=== PATIENT | female | born 1990 | race Caucasian/White ===

== ENCOUNTER 2016-09-04 12:04 | Emergency (ER) | payer OTHER ==
[2016-09-04 12:10] VITALS: BP 141/82; PULSE 80; TEMP 98; BMI 33.2
--- NOTE | 2016-09-04 12:57 | PDOC ---
History of Present Illness - General Chief Complaint: Vaginal Sxs Stated Complaint: TAMPON DISPLACEMENT Time Seen by Provider: 09/04/16 12:21 History Source: Patient Exam Limitations: No Limitations - History of Present Illness Initial Comments: 09/04/16 12:57 My Chief Complaint: unable to get tampax out History of Present Illness: Pt. is a 26 y/o female with h/o asthma here today due to her not being able to get out the tampax that she had put in place at 4 am today. Patient reports a slightly uncomfortable however denies any severe pain. Denies any fever, nausea, or vomiting,or back pain. Pt. denies any urinary symptoms. Pt. denies any vaginal odor. 09/04/16 13:12 Timing/Duration: other (since 4 am tampax) Severity: mild Associated Symptoms: reports: denies symptoms Past History - Past Medical History Allergies/Adverse Reactions: Allergies Allergy/AdvReac Type Severity Reaction Status Date / Time orange juice [[place] Juice] Allergy Mild Rash Verified 09/04/16 12:10 tomato [Tomato] Allergy Rash Verified 09/04/16 12:10 Home Medications: Ambulatory Orders NK [No Known Home Medication] 09/04/16 Asthma: Yes Cancer: No Cardiac Disorders: No Diabetes: No HTN: No Suicide Attempt (Hx): No Seizures: No Thyroid Disease: No - Reproductive History (#): 3 Para: 2 - Immunization History Immunization Up to Date: Yes - Psycho/Social/Smoking Cessation Hx Anxiety: No Suicidal Ideation: No Smoking Status: Yes Smoking History: Current every day smoker Have you smoked in the past 12 months: No Number of Cigarettes Smoked Daily: 4 Cigars Per Day: 0 Information on smoking cessation initiated: No Hx Alcohol Use: Yes (SOCIAL) Drug/Substance Use Hx: No Substance Use Type: None Hx Substance Use Treatment: No Review of Systems - Review of Systems Able to Perform ROS?: Yes Constitutional: No: Symptoms Reported HEENTM: No: Symptoms Reported Respiratory: No: Symptoms reported Cardiac (ROS): No: Symptoms Reported ABD/GI: No: Symptoms Reported : Yes: Other (tampax displaced and retained since 4 am ) Integumentary: No: Symptoms Reported *Physical Exam - Vital Signs Last Vital Signs Temp Pulse Resp BP Pulse Ox 98.0 F 80 20 141/82 99 09/04/16 12:06 09/04/16 12:06 09/04/16 12:06 09/04/16 12:06 09/04/16 12:06 - Physical Exam General Appearance: Yes: Appropriately Dressed Respiratory/Chest: positive: Lungs Clear, Normal Breath Sounds. negative: Chest Tender, Respiratory Distress Cardiovascular: positive: Regular Rhythm, Regular Rate, S1, S2 Female Pelvic Exam: positive: cervical os closed, normal adnexa, discharge ( minimal vaginal bleeding noted ), vaginal bleeding (minimal pink tinged), other (tampax noted across cervical os, after removal of tampax cervical os closed ). negative: CMT, lesions, Bartholin mass, Scalene Gland, adnexal tenderness Gastrointestinal/Abdominal: positive: Normal Bowel Sounds, Soft. negative: Tender, Organomegaly, Distended, Guarding, Rebound, Tenderness, Hepatomegaly, Spleenomegaly Procedures - Consent Consent obtained: From Patient - Additional Procedures Progress: 09/04/16 13:17 inserted speculum was able was able to visualize tampax using a long forcep removed tampax, no CMT, no lesions, tiny amount of pink tinged vaginal bleeding , cervical os closed Medical Decision Making - Medical Decision Making 09/04/16 13:02 Pt. is a 26 y/o female with no significant illnesses here today due to her not being able to get out the tampax that she had put in place at 4 am today. Patient reports a slightly uncomfortable however denies any severe pain. Denies any fever, nausea, or vomiting,or back pain. Pt. denies any urinary symptoms. Pt. denies any vaginal odor. tampax displacement PLAN: tampax removal 09/04/16 13:20 *DC/Admit/Observation/Transfer Diagnosis at time of Disposition: Retained tampon Qualifiers: Encounter type: initial encounter Qualified Code(s): T19.2XXA - Foreign body in vulva and vagina, initial encounter - Discharge Dispostion Disposition: HOME Condition at time of disposition: Stable - Referrals Referrals: Moises Bullock MD [Primary Care Provider] - - Patient Instructions Additional Instructions: Follow up with culinary director as soon as possible Return to emergency room if any Fever, pelvic pain or vaginal discharge do not use tampax for remaining of this menstrual cycle and when you do you tampax make sure the string is felt She voiced understanding of discharge instructions and all questions were answered
== END 2016-09-04 13:10 | disposition home or self-care (01) ==
LOC: JERFT 12:04
DX: T19.2XXA Foreign body in vulva and vagina, initial encounter (principal); X58.XXXA Exposure to other specified factors, initial encounter; Y93.89 Activity, other specified; Y92.038 Other place in apartment as the place of occurrence of the external cause
CPT/HCPCS: 99281-25

== ENCOUNTER 2016-09-14 17:09 | Emergency (ER) | payer OTHER ==
[2016-09-14 17:14] VITALS: BP 116/64; PULSE 86; TEMP 98; BMI 32.8
[2016-09-14 21:19] LABS: BASOPHIL 1.1 % (0-2.0); EOSINOPHIL 1.2 % (0-4.5); MCH 28.4 pg (25.7-33.7); MCHC 32.7 g/dl (32.0-36.0); MEAN PLT VOLUME 8.5 fl (7.5-11.1); NEUTROPHILS 59.5 % (42.8-82.8); PLATELET COUNT 216 K/MM3 (134-434); RDW 14.7 % (11.6-15.6); WHITE BLOOD COUNT 11.1 K/mm3 (4.0-10.0)
[2016-09-14 21:55] LABS: URINE APPEARANCE CLEAR; URINE BILIRUBIN NEGATIVE (NEGATIVE); URINE COLOR LTYELLOW; URINE GLUCOSE (UA) NEGATIVE (NEGATIVE); URINE KETONE NEGATIVE (NEGATIVE); URINE LEUK ESTERASE NEGATIVE (NEGATIVE); URINE NITRITE NEGATIVE (NEGATIVE); URINE PROTEIN NEGATIVE (NEGATIVE); URINE UROBILINOGEN NEGATIVE E.U./dl (0.2-1.0)
--- NOTE | 2016-09-14 22:00 | PDOC ---
History of Present Illness - General Chief Complaint: Vaginal Bleeding Stated Complaint: VAGINAL BLEEDING Time Seen by Provider: 09/14/16 19:49 - History of Present Illness Initial Comments: 09/14/16 21:56 CHIEF COMPLAINT: vaginal bleeding HISTORY OF PRESENT ILLNESS: 26 yo F with history of medical (03/17 ) presents to ED with vaginal bleeding since 4 pm today. She reports that her LMP was 5/3 "so this seemed abnormal to me." She reports the bleeding as enough to warrant a pad, but not more than one pad an hour. She denies urinary discomfort or frequency, nausea, vomiting, diarrhea, but does report "a little headache right now." No recent travel or sick contacts. PAST MEDICAL HISTORY: Denies past medical history FAMILY HISTORY: Denies SOCIAL HISTORY: Current smoker, 4 cigarettes daily. Denies alcohol, illicit drug use. SURGICAL HISTORY: Denies ALLERGIES: orange juice, tomato REVIEW OF SYSTEMS General/Constitutional: Denies fever or chills. Denies weakness. Cardiovascular: Denies chest pain or shortness of breath. Respiratory: Denies cough, wheezing, or hemoptysis. Gastrointestinal: Denies nausea, vomiting, diarrhea or constipation. Denies rectal bleeding. Genitourinary: Vaginal bleeding x 1 day. Denies dysuria, frequency, or change in urination. Musculoskeletal: Denies joint or muscle swelling or pain. Denies neck or back pain. Skin and breasts: Denies rash or easy bruising. PHYSICAL EXAM General Appearance: Well-appearing, appropriately dressed. No apparent distress. HEENT: EOMI, PERRLA,. No conjunctival pallor. No photophobia, scleral icterus. Respiratory/Chest: Lungs CTAB. Cardiovascular: RRR. S1, S2. Gastrointestinal/Abdominal: Normal bowel sounds. Abdomen soft, non-distended. No tenderness or rebound tenderness. No organomegaly, pulsatile mass, guarding, hernia, hepatomegaly, splenomegaly. Pelvic: External genitalia normal without lesions. Vaginal vault with copious bloody discharge, no clots. Cervix is long and closed. No cervical motion tenderness. Uterus is nontender and normal in size. Right adnexal tenderness. Musculoskeletal/Extremities: Normal inspection. FROM of all extremities, normal capillary refill. Pelvis Stable. No CVA tenderness. No tenderness to extremities, pedal edema, swelling, erythema or deformity. Integumentary: Appropriate color, dry, warm. 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 Fully oriented, alert. Appropriate mood/affect. Motor strength 5/5. No appreciable EOM palsy, facial droop or sensory deficit. Past History - Past Medical History Allergies/Adverse Reactions: Allergies Allergy/AdvReac Type Severity Reaction Status Date / Time orange juice [[place] Juice] Allergy Mild Rash Verified 09/14/16 17:14 tomato [Tomato] Allergy Rash Verified 09/14/16 17:14 Home Medications: Ambulatory Orders NK [No Known Home Medication] 09/04/16 Asthma: Yes Cancer: No Cardiac Disorders: No Diabetes: No HTN: No Suicide Attempt (Hx): No Seizures: No Thyroid Disease: No - Reproductive History (#): 3 Para: 2 - Immunization History Immunization Up to Date: Yes - Psycho/Social/Smoking Cessation Hx Anxiety: No Suicidal Ideation: No Smoking Status: Yes Smoking History: Current every day smoker Have you smoked in the past 12 months: No Number of Cigarettes Smoked Daily: 4 Cigars Per Day: 0 Information on smoking cessation initiated: No Hx Alcohol Use: Yes (SOCIAL) Drug/Substance Use Hx: No Substance Use Type: None Hx Substance Use Treatment: No *Physical Exam - Vital Signs Last Vital Signs Temp Pulse Resp BP Pulse Ox 98 F 86 18 116/64 97 09/14/16 17:11 09/14/16 17:11 09/14/16 17:11 09/14/16 17:11 09/14/16 17:11 ED Treatment Course - LABORATORY CBC & Chemistry Diagram: 09/14/16 21:00 - ADDITIONAL ORDERS Additional order review: 09/14/16 21:00 RBC 4.63 MCV 87.0 MCHC 32.7 RDW 14.7 MPV 8.5 Neutrophils % 59.5 Lymphocytes % 30.2 Monocytes % 8.0 Eosinophils % 1.2 Basophils % 1.1 - RADIOLOGY Radiology Studies Ordered: Category Date Time Status TRANSVAGINAL ULTRASOUND US [US] Stat Ultrasound 09/14/16 20:33 Ordered Medical Decision Making - Medical Decision Making 09/14/16 22:00 26 yo F with history of medical (03/17) presents to ED with vaginal bleeding since 4 pm today. -CBC, T&S -UA, UCx, Urine -TV U/S r/o cyst rupture *DC/Admit/Observation/Transfer Diagnosis at time of Disposition: Vaginal bleeding between periods - Discharge Dispostion Disposition: HOME Condition at time of disposition: Stable Admit: No - Referrals Referrals: Moises Bullock MD [Primary Care Provider] - Luis Martinez MD [Staff Physician] - Michelet Lucio MD [Staff Physician] - - Patient Instructions Printed Discharge Instructions: DI for Vaginal Bleeding Additional Instructions: As discussed, please follow up with Dr. Lucio as planned this week for further evaluation of your vaginal bleeding. If you experience any severe bleeding ( more than one soaked pad an hour), dizziness, lightheadedness, vomiting, or any new or worsening symptoms, please return to the ER.
[2016-09-14 22:05] LABS: URINE BLOOD 3+ (NEGATIVE)
[2016-09-14 22:08] LABS: URINE MUCUS RARE; URINE RBC 12 /hpf (0-3); URINE WBC 1 /hpf (3-5)
== END 2016-09-14 23:40 | disposition home or self-care (01) ==
LOC: JER 17:09
DX: N93.8 Other specified abnormal uterine and vaginal bleeding (principal); Z72.0 Tobacco use; J45.909 Unspecified asthma, uncomplicated
CPT/HCPCS: 36415; 76830-TC; 81003; 81015; 84703; 85025; 86850; 86900; 86901; 87086; 99284-25

== ENCOUNTER 2017-06-19 03:37 | Emergency (ER) | payer OTHER ==
[2017-06-19 04:02] VITALS: BP 123/75; PULSE 68; TEMP 98.9; BMI 30.3
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
== END 2017-06-19 08:57 | disposition home or self-care (01) ==
LOC: JER 03:37
DX: O26.891 Other specified pregnancy related conditions, first trimester (principal); S00.03XA Contusion of scalp, initial encounter; V43.62XA Car passenger injured in collision with other type car in traffic accident, initial encounter; Y92.488 Other paved roadways as the place of occurrence of the external cause; Y93.89 Activity, other specified; Y99.8 Other external cause status; Z3A.08 8 weeks gestation of pregnancy
CPT/HCPCS: 36415; 76801-TC; 84702; 99283-25

== ENCOUNTER 2018-01-30 05:10 | Inpatient (IN) | payer OTHER ==
[2018-01-30] MEDS ORDERED: NALOXONE HCL 0.4 MG/ML VIAL IVPUSH PRN (05:36)
[2018-01-30] MEDS ORDERED: AMPICILLIN SODIUM 2 GM VIAL ONE (05:38)
[2018-01-30] MEDS ORDERED: FENTANYL/BUPIVACAINE/NS/PF - PCEA - 50 ML DISP.SYRIN EP SCH (05:45)
[2018-01-30] MEDS ORDERED: FENTANYL/BUPIVACAINE/NS/PF - PCEA - 50 ML DISP.SYRIN EP ONE (05:45)
--- NOTE | 2018-01-30 05:50 | HP ---
Past Medical History - Primary Care Physician PCP:: Ann Pérez - Admission Chief Complaint: 27yo P4 @ 40.6wk with painful contuctions, no VB, no LOF, +FM History of Present Illness: 1. Rh neg s/p Rhogam 11/07/2017 2. GBS pos for Ampicillin prophylaxis 3. BMI - 38, GCT wnl 4. Ex - smoker - reports quieting once found out she is 5. [facility] - Uterotonics cart available 6. h/o PP HTN 2005, first , current highest BP 140/90 will monitor, she is asymptomatic 7. 2009 child with thrombocytopenia, doing well History Source: Patient Limitations to Obtaining History: No Limitations - Past Medical History Pulmonary: Yes: Asthma (mild, no intubation, no steroids) ...: 6 ...Para: 4 ( x 4, FT uncomplicated) ...Term: 4 ...Induced : 1 (RU - 486) ... Weeks Gestation by Dates: 40.6 ...EDC by Dates: 01/24/18 Additional OB History: 2005 PP HTN. 2008 thrombocytopenia - Past Surgical History Past Surgical History: Yes: None Hx Myomectomy: No Hx Transabdominal Cerclage: No - Smoking History Smoking history: Never smoked Have you smoked in the past 12 months: No Aproximately how many cigarettes per day: 4 - Alcohol/Substance Use Hx Alcohol Use: No - Social History History of Recent Travel: No Home Medications - Allergies Allergies/Adverse Reactions: Allergies Allergy/AdvReac Type Severity Reaction Status Date / Time orange juice [[place] Juice] Allergy Mild Rash Verified 11/10/17 18:29 peanut oil Allergy Verified 01/30/18 07:06 tomato [Tomato] Allergy Rash Verified 11/10/17 18:29 - Home Medications Home Medications: Ambulatory Orders Vitamins (Sjr) - 1 tab PO DAILY 01/30/18 Review of Systems - Review of Systems Constitutional: reports: No Symptoms Eyes: reports: No Symptoms HENT: reports: No Symptoms Neck: reports: No Symptoms Cardiovascular: reports: No Symptoms Respiratory: reports: No Symptoms Gastrointestinal: reports: No Symptoms Genitourinary: reports: No Symptoms Breasts: reports: No Symptoms Reported Musculoskeletal: reports: No Symptoms Integumentary: reports: No Symptoms Neurological: reports: No Symptoms Endocrine: reports: No Symptoms Hematology/Lymphatic: reports: No Symptoms Psychiatric: reports: No Symptoms Pain Intensity: 8 Physical Exam - Maternity Constitutional: Yes: Well Nourished, No Distress, Calm Eyes: Yes: WNL HENT: Yes: WNL Neck: Yes: WNL Cardiovascular: Yes: WNL, Regular Rate and Rhythm Lungs: Clear to auscultation Breast(s): Yes: WNL - Abdominal Exam/OB Fundal Height: 39 (EFW - 7lb, gynecoid pelvis) Number of Fetuses: Single Presentation: Vertex Contractions: Yes Regularity: Regular (Q 2-3 per min) Intensity: Mod/Strong Monitor Mode: External Heart Rate (range): 140 Heart Rate Location: Midline Category: I Accelerations: Uniform Decelerations: None - Vaginal Exam/OB Vaginal Bleediing: No Speculum Exam: No Dilatation (cm): 7-8cm Effacement (%): 90 Amniotic Membrane Status: Intact Presentation: Vertex/Position Station: -3 - Physical Exam Musculoskeletal: Yes: WNL Extremities: Yes: WNL Edema: No Integumentary: Yes: WNL ...Motor Strength: WNL Psychiatric: Yes: WNL, Alert, Oriented Assessment/Plan 27yo P 4 @ 40.6wks in active labor Category 1 FHR Admit to L&D IVF NPO Labs Requests Epidural for pain management, anesthesia contacted [facility] Uterotonics cart available Anticipate
[2018-01-30] MEDS ORDERED: AMPICILLIN - 2 GM in SODIUM CHLORIDE 100 ML IVPB ONE (05:53)
[2018-01-30] MEDS ORDERED: ELECTROLYTE-148 SOLN 1,000 ML IV SCH (06:00)
[2018-01-30 06:05] LABS: BASO % 0.1 % (0-2.0); EOS % 0.2 % (0-4.5); HEMATOCRIT 33.8 % (32.4-45.2); HEMOGLOBIN 11.1 GM/dL (10.7-15.3); LYMPH % 12.1 % (8-40); MCH 28.2 pg (25.7-33.7); MEAN CELL VOLUME 85.4 fl (80-96); MEAN PLT VOLUME 9.7 fl (7.5-11.1); MONO % 8.3 % (3.8-10.2); NEUT % 79.3 % (42.8-82.8); PLATELET COUNT 159 K/MM3 (134-434); RBC 3.95 M/mm3 (3.60-5.2); RDW 14.6 % (11.6-15.6); WHITE BLOOD COUNT 14.4 K/mm3 (4.0-10.0)
[2018-01-30 06:12] VITALS: BMI 38.3
[2018-01-30] MEDS ORDERED: OXYTOCIN 20 UNITS in 0.9% NS 20 UNIT/1,000 ML INFUS.BAG IV ONE ×2 (06:24→10:21)
[2018-01-30 06:46] LABS: INR 0.92 (0.83-1.09); PROTHROMBIN TIME (PATIENT) 10.9 SEC (9.7-13.0)
[2018-01-30] MEDS ORDERED: OXYTOCIN 30 UNITS in 0.9% NS 30 UNIT/500 ML INFUS.BAG IVPB ONE (07:12)
[2018-01-30] MEDS ORDERED: OXYTOCIN 30 UNITS in 0.9% NS 30 UNIT/500 ML INFUS.BAG IVPB SCH (07:30)
[2018-01-30] MEDS ORDERED: LIDOCAINE HCL 1% PRESERVATIVE FREE - 30ML VIAL ONE (07:32)
[2018-01-30] MEDS: OXYTOCIN 20 UNITS in 0.9% NS 20 UNIT/1,000 ML INFUS.BAG IV SCH ×3 (08:45→11:15)
[2018-01-30] MEDS ORDERED: BENZOCAINE 20% 57 GM BOTTLE TP PRN (08:48)
[2018-01-30] MEDS ORDERED: WITCH HAZEL 50% (TUCKS) 40 PAD/JAR PAD TP PRN (08:48)
[2018-01-30] MEDS ORDERED: BISACODYL 10 MG SUPP.RECT RC PRN (08:48)
[2018-01-30] MEDS ORDERED: METHYLERGONOVINE MALEATE 0.2 MG/1 ML AMP IM PRN (08:48)
[2018-01-30] MEDS ORDERED: BENZOCAINE 28 GM HEMORRHOIDAL OINTMENT TP PRN (08:48)
--- NOTE | 2018-01-30 08:53 | PN ---
Delivery - Delivery Vaginal Delivery: No Problems Type of Anesthesia: Epidural Episiotomy/Laceration: None EBL (cc): 200 Delivery, Single - Stages of Labor Date 1st Stage Initiatied: 01/30/18 Time 1st Stage Initiated: 01:00 Date 2nd Stage Initiated: 01/30/18 Time 2nd Stage Initiated: 08:30 Date of Delivery: 01/30/18 Time of Delivery: 08:40 Date Placenta Delivered: 01/30/18 Time Placenta Delivered: 08:45 Placenta: Yes: Spontaneous - Condition of Television News Video Editor/Editor Continuity And Script Present: No Gender: Female Weight: 7 lb 9 oz Position: Left, OA - 1 Minute Total Score: 9 5 Minutes Total Score: 10 - Feeding Plan Initial Plan: Exclusive throughout hospitalization Benefits of Exclusively reinforced: Yes Remarks - Remarks Remarks: Uncomplicated delivery of head and shoulders Blood gasses sent
[2018-01-30] MEDS ORDERED: D5W-LR W/ 20 UNITS OXYTOCIN 20 UNIT/1,000 ML INFUS.BAG IV SCH (09:00)
[2018-01-30 09:17] LABS: ARTERIAL BLD GAS O2 SATURATION 20.2 % (90-98.9); ARTERIAL BLOOD GAS PCO2 59.5 mmHg (35-45); ARTERIAL BLOOD GAS PO2 15.5 mmHg (80-100); ARTERIAL BLOOD GAS pH 7.26 (7.35-7.45)
[2018-01-30 09:18] LABS: ARTERIAL BLOOD GAS BASE EXCESS -2.3 meq/l (-2-2)
[2018-01-30 09:21] LABS: VENOUS PH 7.29 (7.32-7.42)
[2018-01-30 09:22] LABS: VENOUS PC02 51.1 mmHg (38-52); VENOUS PO2 23.8 mmHg (28-48)
[2018-01-30 09:36] LABS: COCAINE, UR NEGATIVE ng/ml (CUTOFF=300); METHADONE, UR NEGATIVE ng/ml (CUTOFF=300); OPIATES, URI NEGATIVE ng/ml (CUTOFF=300); PHENCYCLIDINE,URINE NEGATIVE ng/ml (CUTOFF=25); URINE AMPHETAMINES NEGATIVE ng/ml (CUTOFF=500); URINE BARBITURATES NEGATIVE ng/ml (CUTOFF=200); URINE BENZODIAZEPINES NEGATIVE ng/ml (CUTOFF=200)
[2018-01-30] MEDS: PRENATAL VITAMINS W/ FOLIC ACID TABLET (FP) PO SCH (12:14)
[2018-01-30] MEDS: FERROUS SO4 325 MG TABLET (FP) PO SCH ×2 (12:14→22:04)
[2018-01-30] MEDS: ACETAMINOPHEN 325 MG TABLET (FP) PO PRN (12:54)
[2018-01-30] MEDS: IBUPROFEN 600 MG TABLET (FP) PO PRN (12:56)
[2018-01-31 07:45] LABS: BASO % 0.3 % (0-2.0); EOS % 0.3 % (0-4.5); HEMATOCRIT 33.6 % (32.4-45.2); HEMOGLOBIN 10.9 GM/dL (10.7-15.3); LYMPH % 19.9 % (8-40); MCH 27.7 pg (25.7-33.7); MCHC 32.4 g/dl (32.0-36.0); MEAN CELL VOLUME 85.4 fl (80-96); MEAN PLT VOLUME 9.7 fl (7.5-11.1); MONO % 8.8 % (3.8-10.2); NEUT % 70.7 % (42.8-82.8); PLATELET COUNT 167 K/MM3 (134-434); RBC 3.93 M/mm3 (3.60-5.2); RDW 14.8 % (11.6-15.6); WHITE BLOOD COUNT 14.7 K/mm3 (4.0-10.0)
[2018-01-31] MEDS: FERROUS SO4 325 MG TABLET (FP) PO SCH ×2 (09:14→21:25)
[2018-01-31] MEDS: PRENATAL VITAMINS W/ FOLIC ACID TABLET (FP) PO SCH (09:14)
--- NOTE | 2018-01-31 09:47 | PN ---
Post Progress Note - Subjective Subjective: Patient without acute complaints. Reports tolerating oral intake without nausea or vomiting. Ambulating without dizziness. Denies fevers or chills. Pain well controlled with oral pain medication. without difficulty. Passing flatus. Post Day: 1 Type of Delivery: Vital Signs: Vital Signs Temperature 98.0 F 01/31/18 06:00 Pulse Rate 79 01/31/18 06:00 Respiratory Rate 20 01/31/18 06:00 Blood Pressure 125/58 L 01/31/18 06:00 O2 Sat by Pulse Oximetry (%) 99 01/30/18 10:00 Breast Exam: Yes: Soft Uterus: Yes: Fundus Firm Abdomen/GI: Yes: Abdomen soft Lochia: Yes: Rubra Lochia, amount: Small Perineum: Yes: Intact Activity: Ambulating - Labs Labs: CBC WBC 14.7 K/mm3 (4.0-10.0) H 01/31/18 07:00 RBC 3.93 M/mm3 (3.60-5.2) 01/31/18 07:00 Hgb 10.9 GM/dL (10.7-15.3) 01/31/18 07:00 Hct 33.6 % (32.4-45.2) 01/31/18 07:00 MCV 85.4 fl (80-96) 01/31/18 07:00 MCH 27.7 pg (25.7-33.7) 01/31/18 07:00 MCHC 32.4 g/dl (32.0-36.0) 01/31/18 07:00 RDW 14.8 % (11.6-15.6) 01/31/18 07:00 Plt Count 167 K/MM3 (134-434) 01/31/18 07:00 MPV 9.7 fl (7.5-11.1) 01/31/18 07:00 Absolute Neuts (auto) 10.4 K/mm3 (1.5-8.0) H 01/31/18 07:00 Neutrophils % 70.7 % (42.8-82.8) 01/31/18 07:00 Lymphocytes % 19.9 % (8-40) D 01/31/18 07:00 Monocytes % 8.8 % (3.8-10.2) 01/31/18 07:00 Eosinophils % 0.3 % (0-4.5) 01/31/18 07:00 Basophils % 0.3 % (0-2.0) 01/31/18 07:00 Nucleated RBC % 0 % (0-0) 01/31/18 07:00 Assessment/Plan 27yo P 5 now 1. Doing well 2. VSS, Afebrile, no evidance of acute blood loss 3. Rh negative status, s/p RhoGam 4. Encourage ambulation 5. Continue oral pain medication 6. Discharge home tomorrow 7. Instructed on Pelvic rest for 6weeks 8. Return to office in 4-6 weeks
--- NOTE | 2018-01-31 09:47 | DS ---
Physical Exam-MAINTENANCE TRAINER Vital Signs: Vital Signs Temperature 98.0 F 01/31/18 06:00 Pulse Rate 79 01/31/18 06:00 Respiratory Rate 20 01/31/18 06:00 Blood Pressure 125/58 L 01/31/18 06:00 O2 Sat by Pulse Oximetry (%) 99 01/30/18 10:00 Constitutional: Yes: Well Nourished, No Distress, Calm Eyes: Yes: WNL HENT: Yes: WNL Neck: Yes: WNL Cardiovascular: Yes: WNL, Regular Rate and Rhythm Respiratory: Yes: WNL, Regular, CTA Bilaterally Gastrointestinal: Yes: WNL, Normal Bowel Sounds, Soft External Genitalia: Yes: Normal Internal Exam Deferred: Yes ....Post : Yes: Uterus firm, Uterus non-tender Breast(s): Yes: WNL Musculoskeletal: Yes: WNL Extremities: Yes: WNL Edema: No Integumentary: Yes: WNL Neurological: Yes: WNL, Alert, Oriented ...Motor Strength: WNL Psychiatric: Yes: WNL, Alert, Oriented Labs: CBC, BMP 01/31/18 07:00 Delivery - Delivery Vaginal Delivery: No Problems Type of Anesthesia: Epidural Episiotomy/Laceration: None EBL (cc): 200 Delivery, Single - Stages of Labor Date 1st Stage Initiatied: 01/30/18 Time 1st Stage Initiated: 01:00 Date 2nd Stage Initiated: 01/30/18 Time 2nd Stage Initiated: 08:30 Date of Delivery: 01/30/18 Time of Delivery: 08:40 Date Placenta Delivered: 01/30/18 Time Placenta Delivered: 08:45 Placenta: Yes: Spontaneous - Condition of Infant Cloth Bleaching Supervisor/Marine Photographer Present: No Infant Gender: Female Weight: 7 lb 9 oz Position: Left, OA Total Hours ROM (Hrs/Mins): 1/45 - 1 Minute Total Score: 9 5 Minutes Total Score: 10 - [place] Feeding Plan Initial Plan: Exclusive throughout hospitalization Benefits of Exclusively reinforced: Yes Remarks - Remarks Remarks: Uncomplicated delivery of head and shoulders Blood gasses sent Discharge Summary Reason For Visit: LABOR ADMIT Procedures: Principal: Normal Vaginal delivery Other Procedures: RhoGam administration Hospital Course: Unremarkable Condition: Good - Instructions Diet, Activity, Other Instructions: Physical activity Resume your normal everyday activity as tolerated no heavy lifting or exercise until seen by your surgeon. You may walk unlimited sangeetha of and climb stairs. You may resume driving the car when you feel safe and comfortable behind the wheel. No sexual activity as instructed. Wound care If you have a bandage, leave it on, and keep dry for 48-72 hours. After that time discard the outer bandage. If they are tapes on the skin under the out of bandage leave them in place. They will peel off in the next 7 to 10 days. Do Not Peel them off. You may shower the day after surgery. If there are tapes present on the skin, you may shower over them. Diet There are no dietary restrictions. Eat healthy, high-fiber foods. Drink 6 to 8 glasses of liquid each day. This will assist in keeping your bowels are regular. Pain management You may take Tylenol or acetaminophen or Ibuprofen (for example, Motrin, Advil etc.) from my pain prescription medication is ordered should be taken as prescribed for moderate to severe pain. Call MD for any of the following: Severe pain not relieved by medication Fever of 101 or higher Excessive bleeding or drainage on dressing Inability to urinate Referrals: Michelet Lucio MD [Staff Physician] - Disposition: HOME - Home Medications Comprehensive Discharge Medication List: Ambulatory Orders Vitamins (Sjr) - 1 tab PO DAILY 01/30/18
[2018-01-31] MEDS: ACETAMINOPHEN 325 MG TABLET (FP) PO PRN (21:25)
[2018-01-31] MEDS: IBUPROFEN 600 MG TABLET (FP) PO PRN (21:26)
[2018-01-31] MEDS ORDERED: SENNOSIDES/DOCUSATE COMBO (SENNA PLUS) TABLET (UD) PO PRN (22:00)
[2018-01-31] MEDS: OXYTOCIN 20 UNITS in 0.9% NS 20 UNIT/1,000 ML INFUS.BAG IV SCH (23:55)
[2018-02-01 08:42] VITALS: BP 122/68; PULSE 65; TEMP 98.6
[2018-02-01] MEDS: PRENATAL VITAMINS W/ FOLIC ACID TABLET (FP) PO SCH (09:11)
[2018-02-01] MEDS: FERROUS SO4 325 MG TABLET (FP) PO SCH (09:11)
== END 2018-02-01 12:15 | disposition home or self-care (01) | DRG 560 ==
LOC: JLDR 05:10 → J3W 11:21
PROVIDERS: ADMIT Obstetrics & Gynecology; ATTEND Obstetrics & Gynecology
PROC: 10E0XZZ Delivery of Products of Conception, External Approach (ICD-10-PCS; principal; 2018-01-30)
DX: O99.824 Streptococcus B carrier state complicating childbirth (principal); Z3A.01 Less than 8 weeks gestation of pregnancy; Z37.0 Single live birth
CPT/HCPCS: 36415; 36600; 59409; 71046-TC-FY; 80307; 82803; 85025; 85461; 85610; 85730; 86593; 86762; 86850; 86900; 86901; 86999; 87389

== ENCOUNTER 2019-11-01 09:23 | Inpatient (IN) | payer OTHER ==
[2019-11-01] MEDS ORDERED: OXYTOCIN 20 UNITS in 0.9% NS 20 UNIT/1,000 ML INFUS.BAG IV ONE (10:12)
[2019-11-01] MEDS ORDERED: LIDOCAINE HCL 1% PRESERVATIVE FREE - 30ML VIAL ONE (10:12)
--- NOTE | 2019-11-01 10:15 | PD.OB.PROG ---
Past Medical History - Primary Care Physician PCP:: Luis Martinez Documenting Provider Type: Laborist - Admission Chief Complaint: Pain. Labor? History of Present Illness: 6th baby normal Limitations to Obtaining History: No Limitations - Nursing Documentation Nursing Documentation Reviewed: Yes - Past Medical History DECORATOR CONSULTANT: Denies/None Cardio/Vascular: Denies/None Pulmonary: Denies/None Gastrointestinal: Denies/None Hepatobiliary: Denies/None Renal/: Denies/None Heme/Onc: Denies/None Infectious Disease: Denies/None Psych: Denies/None Musculoskeletal: Denies/None Rheumatology: Denies/None ENT: Denies/None Endocrine: Denies/None Dermatology: Denies/None - Past Surgical History Past Surgical History: Yes: None - Smoking History Smoking history: Never smoked Have you smoked in the past 12 months: No Aproximately how many cigarettes per day: 4 - Alcohol/Substance Use Hx Alcohol Use: No - Social History History of Recent Travel: No Physical Exam - Obstetrical Constitutional: Yes: Well Nourished, No Distress, Calm Eyes: Yes: WNL, Conjunctiva Clear, EOM Intact HENT: Yes: WNL, Atraumatic, Normocephalic Neck: Yes: WNL, Supple, Trachea Midline Cardiovascular: Yes: WNL, Regular Rate and Rhythm Lungs: Clear to auscultation Breast(s): Yes: WNL - Abdominal Exam/OB Fundal Height: 40 Number of Fetuses: Single Presentation: Other (uncertain) Contractions: Yes Regularity: Regular Intensity: Mild Monitor Mode: External Heart Rate (range): 135 Heart Rate Location: [facility] Category: I Accelerations: Uniform Decelerations: None - Vaginal Exam/OB Vaginal Exam Deferred: No Vaginal Bleeding: No Speculum Exam: No Dilatation (cm): 9 Effacement (%): 100 Amniotic Membrane Status: Bulging Nitrazine Test: Negative Presentation: Vertex/Position (uncertain, cannot feel PP) - Physical Exam Musculoskeletal: Yes: WNL Extremities: Yes: WNL Integumentary: Yes: WNL ...Motor Strength: WNL Psychiatric: Yes: WNL Problem List - Problems (1) with 39 completed weeks gestation Code(s): Z3A.39 - 39 WEEKS GESTATION OF (2) Normal labor Code(s): O80 - ENCOUNTER FOR FULL-TERM UNCOMPLICATED DELIVERY; Z37.9 - OUTCOME OF DELIVERY, UNSPECIFIED (3) Uncertain lie of fetus Code(s): O32.0XX0 - MATERNAL CARE FOR UNSTABLE LIE, NOT APPLICABLE OR UNSP Assessment/Plan Multiparous female in active labor. Bulging membranes. Uncertain lie. Bedside sono done: vertex at the inlet. Good FH. Expecting NVD soon. Allow to labor. No ROM now. Fully discussed. Dr. Elizabeth notified.
[2019-11-01 10:41] LABS: BASO % 0.3 % (0-2.0); EOS % 0.3 % (0-4.5); HEMATOCRIT 35.8 % (32.4-45.2); HEMOGLOBIN 11.5 GM/dL (10.7-15.3); LYMPH % 12.3 % (8-40); MEAN CELL VOLUME 84.3 fl (80-96); MEAN PLT VOLUME 9.8 fl (7.5-11.1); NEUT % 82.1 % (42.8-82.8); PLATELET COUNT 160 K/MM3 (134-434); RBC 4.25 M/mm3 (3.60-5.2); RDW 14.6 % (11.6-15.6); WHITE BLOOD COUNT 14.7 K/mm3 (4.0-10.0)
[2019-11-01 10:45] VITALS: BMI 42.0
[2019-11-01 10:50] LABS: INR 0.9 (0.83-1.09); PROTHROMBIN TIME (PATIENT) 10.6 SEC (9.7-13.0)
[2019-11-01 10:52] LABS: ACTIVATED PTT 27.6 SECONDS (25.2-36.5)
[2019-11-01 11:13] LABS: BLOOD UREA NITROGEN 6.5 mg/dL (7-18); CALCIUM 8.8 mg/dL (8.5-10.1); CREATININE 0.6 mg/dL (0.55-1.3); POTASSIUM 3.7 mmol/L (3.5-5.1)
[2019-11-01] MEDS ORDERED: ELECTROLYTE-148 SOLN 1,000 ML IV SCH (12:00)
[2019-11-01] MEDS ORDERED: OXYTOCIN 30 UNITS in 0.9% NS 30 UNIT/500 ML INFUS.BAG IVPB ONE (14:00)
--- NOTE | 2019-11-01 14:38 | PN ---
Progress Note (short form) - Note Progress Note: cx full 100 vx -2 srom, clear , fhr cat 1, regular contraction
[2019-11-01] MEDS ORDERED: BUTORPHANOL TARTRATE 1 MG/ML VIAL ONE (15:35)
[2019-11-01] MEDS ORDERED: PROMETHAZINE HCL 25 MG/1 ML VIAL ONE (15:35)
--- NOTE | 2019-11-01 15:46 | PN ---
Progress Note (short form) - Note Progress Note: cx full 100 vx -2 , regular contraction, c/o severe pain, does not want to push. pain meds discussed advised statdol 1 mg
[2019-11-01] MEDS ORDERED: PROMETHAZINE HCL 25 MG/1 ML VIAL IVPUSH ONE (15:48)
[2019-11-01] MEDS ORDERED: DEXTROSE 5%-LACTATED RINGERS 1,000 ML IV SCH (16:00)
[2019-11-01] MEDS ORDERED: BUTORPHANOL TARTRATE 1 MG/ML VIAL IVPUSH ONE (16:00)
--- NOTE | 2019-11-01 16:30 | HP ---
Past Medical History - Primary Care Physician PCP:: Luis Martinez - Admission Chief Complaint: 39.2 weeks, labor , grand multiparous History of Present Illness: * 29 yo f o 4 5, 39 .2 weeks admitted in labor . cx 9 cm 100 vx -4 fhr cat 1, irregular contraction bulging membrane History Source: Patient Limitations to Obtaining History: No Limitations - Past Medical History Pulmonary: Yes: Asthma (mild, no intubation, no steroids) ...: 10 ...Para: 5 ...Term: 5 ...: 0 ...Spon : 1 ...Induced : 3 ...Living Children: 5 ...Multiple Gestation: 0 ...LMP: 01/30/19 ... Weeks Gestation by Dates: 39.2 ...EDC by Dates: 11/06/19 ...EDC by Sono: 11/02/19 - Past Surgical History Past Surgical History: Yes: None Hx Myomectomy: No Hx Transabdominal Cerclage: No - Smoking History Smoking history: Never smoked Have you smoked in the past 12 months: No Aproximately how many cigarettes per day: 4 - Alcohol/Substance Use Hx Alcohol Use: No - Social History History of Recent Travel: No Home Medications - Allergies Allergies/Adverse Reactions: Allergies Allergy/AdvReac Type Severity Reaction Status Date / Time orange juice [[place] Juice] Allergy Mild Rash Verified 11/01/19 10:49 peanut oil Allergy Verified 11/01/19 10:49 tomato [Tomato] Allergy Rash Verified 11/01/19 10:49 - Home Medications Home Medications: Ambulatory Orders Vitamins (Sjr) - 1 tab PO DAILY 01/30/18 Review of Systems - Review of Systems Constitutional: reports: No Symptoms Eyes: reports: No Symptoms HENT: reports: No Symptoms Neck: reports: No Symptoms Cardiovascular: reports: No Symptoms Respiratory: reports: No Symptoms Gastrointestinal: reports: No Symptoms Genitourinary: reports: No Symptoms Breasts: reports: No Symptoms Reported Musculoskeletal: reports: No Symptoms Integumentary: reports: No Symptoms Neurological: reports: No Symptoms Endocrine: reports: No Symptoms Hematology/Lymphatic: reports: No Symptoms Psychiatric: reports: No Symptoms Physical Exam - Maternity Vital Signs: Vital Signs Temperature 98.1 F 11/01/19 14:00 Pulse Rate 96 H 11/01/19 14:00 Respiratory Rate 18 11/01/19 14:00 Blood Pressure 137/87 11/01/19 14:00 O2 Sat by Pulse Oximetry (%) Constitutional: Yes: Well Nourished Eyes: Yes: WNL, Conjunctiva Clear, EOM Intact HENT: Yes: WNL, Atraumatic, Normocephalic Neck: Yes: WNL, Supple, Trachea Midline Cardiovascular: Yes: WNL, Regular Rate and Rhythm Breast(s): Yes: WNL - Abdominal Exam/OB Fundal Height: 40 Number of Fetuses: Single Presentation: Vertex Contractions: Yes Regularity: Irregular Intensity: Mod/Strong Monitor Mode: External Heart Rate Location: [facility] Category: I Accelerations: Non-Uniform Decelerations: None - Vaginal Exam/OB Vaginal Bleeding: No Speculum Exam: Yes Dilatation (cm): 9 cm Effacement (%): 100 Amniotic Membrane Status: Bulging Presentation: Vertex/Position Station: -4 - Physical Exam Musculoskeletal: Yes: WNL Extremities: Yes: WNL Edema: Yes Edema: LLE: Trace, RLE: Trace Deep Tendon Reflex Grade: Normal +2 - Labs Lab Results: CBC, BMP 11/01/19 10:12 11/01/19 10:12 Hemorrhage Risk Assessment - Risk Factors Medium Risk Factors: Yes: None High Risk Factors: Yes: None Risk Score: 1 Risk Level: Medium Risk Problem List - Problems (1) with 39 completed weeks gestation Code(s): Z3A.39 - 39 WEEKS GESTATION OF (2) Second stage of labor not established Code(s): [id number] - (3) Obesity complicating childbirth Code(s): O99.214 - OBESITY COMPLICATING CHILDBIRTH Assessment/Plan admit, observation fhm
[2019-11-01] MEDS ORDERED: BENZOCAINE 28 GM HEMORRHOIDAL OINTMENT TP PRN (16:33)
[2019-11-01] MEDS ORDERED: BISACODYL 10 MG SUPP.RECT RC PRN (16:33)
[2019-11-01] MEDS ORDERED: BENZOCAINE 20% 57 GM BOTTLE TP PRN (16:33)
[2019-11-01] MEDS ORDERED: WITCH HAZEL 50% (TUCKS) 40 PAD/JAR PAD TP PRN (16:33)
[2019-11-01] MEDS ORDERED: METHYLERGONOVINE MALEATE 0.2 MG/1 ML AMP IM PRN (16:33)
[2019-11-01] MEDS ORDERED: METHYLERGONOVINE MALEATE 0.2 MG/1 ML AMP IM ONE (16:34)
--- NOTE | 2019-11-01 16:36 | PN ---
Delivery - Delivery Vaginal Delivery: Spontaneous Episiotomy/Laceration: None (cx full head delivered , nasopharynx suctiond ant. and post, shoulder with no difficulty , live baby boy , 9/9 , placenta complete , no laceration, ebl 300 cc ,no complication) Delivery, Single - [place] Feeding Plan Initial Plan: Exclusive throughout hospitalization
[2019-11-01] MEDS: OXYTOCIN 20 UNITS in 0.9% NS 20 UNIT/1,000 ML INFUS.BAG IV SCH ×2 (16:55→21:06)
[2019-11-01 17:35] LABS: CORD BASE EXCESS -5.6 mmol/L (0-2); CORD PCO2 69.6 mmHg (30-78); CORD pH 7.173 (7.14-7.44)
[2019-11-01 17:37] LABS: CORD BASE EXCESS -7.1 mmol/L (0-2); CORD PCO2 45.9 mmHg (30-78); CORD pH 7.258 (7.14-7.44)
[2019-11-01] MEDS: FERROUS SO4 325 MG TABLET (FP) PO SCH (21:09)
[2019-11-01] MEDS: ACETAMINOPHEN 325 MG TABLET (FP) PO PRN (22:23)
[2019-11-01] MEDS: IBUPROFEN 600 MG TABLET (FP) PO PRN (22:24)
--- NOTE | 2019-11-02 06:44 | PN ---
Progress Note (short form) - Note Progress Note: ppd 1 , no c/o, voids ok, no excess vaginal bleeding CBC, BMP 11/01/19 10:12 11/01/19 10:12 Last Vital Signs Temp Pulse Resp BP Pulse Ox 98.1 F 72 18 142/75 98 11/02/19 06:26 11/02/19 06:26 11/02/19 06:26 11/02/19 06:26 11/01/19 20:27 abdomen soft, no distension, no cva uterus firm, non tender lochis mild no calf tenderness ppd 1 s/p ,doing well plan ambulate , cbc Problem List - Problems (1) with 39 completed weeks gestation Code(s): Z3A.39 - 39 WEEKS GESTATION OF (2) Second stage of labor not established Code(s): SWA5919 - (3) Obesity complicating childbirth Code(s): O99.214 - OBESITY COMPLICATING CHILDBIRTH
[2019-11-02 08:37] LABS: BASO % 0.6 % (0-2.0); EOS % 0.2 % (0-4.5); HEMATOCRIT 29.6 % (32.4-45.2); HEMOGLOBIN 9.5 GM/dL (10.7-15.3); MCH 26.8 pg (25.7-33.7); MEAN CELL VOLUME 83.8 fl (80-96); MEAN PLT VOLUME 9.8 fl (7.5-11.1); MONO % 8.6 % (3.8-10.2); NEUT % 76.6 % (42.8-82.8); PLATELET COUNT 145 K/MM3 (134-434); RBC 3.53 M/mm3 (3.60-5.2); RDW 14.6 % (11.6-15.6); WHITE BLOOD COUNT 16.4 K/mm3 (4.0-10.0)
[2019-11-02] MEDS: ACETAMINOPHEN 325 MG TABLET (FP) PO PRN (09:40)
[2019-11-02] MEDS: FERROUS SO4 325 MG TABLET (FP) PO SCH ×2 (09:41→23:01)
[2019-11-02] MEDS: IBUPROFEN 600 MG TABLET (FP) PO PRN (09:41)
[2019-11-02] MEDS: PRENATAL VITAMINS W/ FOLIC ACID TABLET (FP) PO SCH (09:41)
[2019-11-02] MEDS ORDERED: SENNOSIDES/DOCUSATE COMBO (SENNA PLUS) TABLET (UD) PO PRN (22:00)
[2019-11-03 09:50] VITALS: BP 127/66; PULSE 87; TEMP 98.1
[2019-11-03] MEDS: IBUPROFEN 600 MG TABLET (FP) PO PRN (09:54)
[2019-11-03] MEDS: FERROUS SO4 325 MG TABLET (FP) PO SCH (09:54)
[2019-11-03] MEDS: PRENATAL VITAMINS W/ FOLIC ACID TABLET (FP) PO SCH (09:55)
[2019-11-03] MEDS: ACETAMINOPHEN 325 MG TABLET (FP) PO PRN (09:55)
--- NOTE | 2019-11-03 11:46 | PN ---
Post Progress Note - Subjective Subjective: Patient without acute complaints. Reports tolerating oral intake without nausea or vomiting. Ambulating without dizziness. Denies fevers or chills. Pain well controlled with oral pain medication. Pumping/breast feeding without issue. Passing flatus. Post Day: 2 Type of Delivery: Vital Signs: Vital Signs Temperature 98.1 F 11/03/19 09:48 Pulse Rate 87 11/03/19 09:48 Respiratory Rate 18 11/03/19 09:48 Blood Pressure 127/66 11/03/19 09:48 O2 Sat by Pulse Oximetry (%) 98 11/01/19 20:27 Breast Exam: Yes: Soft Uterus: Yes: Fundus Firm, Fundus below umbilicus, Non-tender Abdomen/GI: Yes: Abdomen soft, Passing flatus, Tolerating PO Lochia: Yes: Rubra Lochia, amount: Small Extremities: Yes: Calves non-tender, Edema (1+ bilat) Perineum: Yes: Intact Activity: Ambulating - Labs Labs: CBC WBC 16.4 K/mm3 (4.0-10.0) H 11/02/19 08:12 RBC 3.53 M/mm3 (3.60-5.2) L 11/02/19 08:12 Hgb 9.5 GM/dL (10.7-15.3) L 11/02/19 08:12 Hct 29.6 % (32.4-45.2) L D 11/02/19 08:12 MCV 83.8 fl (80-96) 11/02/19 08:12 MCH 26.8 pg (25.7-33.7) 11/02/19 08:12 MCHC 32.0 g/dl (32.0-36.0) 11/02/19 08:12 RDW 14.6 % (11.6-15.6) 11/02/19 08:12 Plt Count 145 K/MM3 (134-434) 11/02/19 08:12 MPV 9.8 fl (7.5-11.1) 11/02/19 08:12 Absolute Neuts (auto) 12.6 K/mm3 (1.5-8.0) H 11/02/19 08:12 Neutrophils % 76.6 % (42.8-82.8) 11/02/19 08:12 Lymphocytes % 14.0 % (8-40) 11/02/19 08:12 Monocytes % 8.6 % (3.8-10.2) 11/02/19 08:12 Eosinophils % 0.2 % (0-4.5) 11/02/19 08:12 Basophils % 0.6 % (0-2.0) 11/02/19 08:12 Nucleated RBC % 0 % (0-0) 11/02/19 08:12 Assessment/Plan 29yo s/p , doing well stable, afebrile. Asymptomatic for anemia. care instructions reviewed. Continue routine care. Ambulation encouraged Discharge instruction reviewed.
--- NOTE | 2019-11-03 12:03 | DS ---
Physical Exam-FURNITURE SANDER Vital Signs: Vital Signs Temperature 98.1 F 11/03/19 09:48 Pulse Rate 87 11/03/19 09:48 Respiratory Rate 18 11/03/19 09:48 Blood Pressure 127/66 11/03/19 09:48 O2 Sat by Pulse Oximetry (%) 98 11/01/19 20:27 Constitutional: Yes: Well Nourished, No Distress, Calm Eyes: Yes: WNL, Conjunctiva Clear, EOM Intact HENT: Yes: WNL, Atraumatic, Normocephalic Neck: Yes: WNL, Supple, Trachea Midline Cardiovascular: Yes: WNL, Regular Rate and Rhythm Respiratory: Yes: WNL, Regular, CTA Bilaterally Gastrointestinal: Yes: WNL, Normal Bowel Sounds, Soft ...Rectal Exam: Yes: Deferred Renal/: Yes: WNL External Genitalia: Yes: Normal Internal Exam Deferred: Yes ....Post : Yes: Uterus firm, Uterus non-tender, Slight lochia rubra Breast(s): Yes: WNL Musculoskeletal: Yes: WNL Extremities: Yes: WNL Edema: Yes Edema: LLE: 1+, RLE: 1+ Integumentary: Yes: WNL Neurological: Yes: WNL, Alert, Oriented ...Motor Strength: WNL Psychiatric: Yes: WNL, Alert, Oriented Labs: CBC, BMP 11/02/19 08:12 11/01/19 10:12 Delivery - Delivery Vaginal Delivery: No Problems, Spontaneous Type of Anesthesia: None Episiotomy/Laceration: None EBL (cc): 300 Delivery, Single - Stages of Labor Date 1st Stage Initiatied: 11/01/19 Time 1st Stage Initiated: 06:00 Date 2nd Stage Initiated: 11/01/19 Time 2nd Stage Initiated: 16:00 Date of Delivery: 11/01/19 Time of Delivery: 16:24 Time Placenta Delivered: 16:26 Placenta: Yes: Spontaneous, Normal Configuration - Condition of Otc Clerk/Avionics Systems Repairer Present: No Gender: Male Weight: 4.082 kg Position: Right, OA Total Hours ROM (Hrs/Mins): 2hrs 42 - 1 Minute Total Score: 9 5 Minutes Total Score: 9 - Feeding Plan Initial Plan: Exclusive throughout hospitalization Benefits of Exclusively reinforced: Yes Discharge Summary Problems reviewed: Yes Reason For Visit: LABOR ADMISSION Current Active Problems Normal labor (Acute) Obesity complicating childbirth (Acute) with 39 completed weeks gestation (Acute) with 39 completed weeks gestation (Acute) Second stage of labor not established (Acute) Uncertain lie of fetus (Acute) Procedures: Principal: Hospital Course: Normal course Goals: Normal course Condition: Good - Instructions Diet, Activity, Other Instructions: Physical activity Resume your normal everyday activity as tolerated no heavy lifting or exercise u ntil seen by your surgeon. You may walk unlimited sangeetha of and climb stairs. You may resume driving the car when you feel safe and comfortable behind the wheel. No sexual activity as instructed. Wound care If you have a bandage, leave it on, and keep dry for 48-72 hours. After that time discard the outer bandage. If they are tapes on the skin under the out of bandage leave them in place. They will peel off in the next 7 to 10 days. Do Not Peel them off. You may shower the day after surgery. If there are tapes present on the skin, you may shower over them. Diet There are no dietary restrictions. Eat healthy, high-fiber foods. Drink 6 to 8 glasses of liquid each day. This will assist in keeping your bowels are regular. Pain management You may take Tylenol or acetaminophen or Ibuprofen (for example, Motrin, Advil etc.) from my pain prescription medication is ordered should be taken as prescribed for moderate to severe pain. Call MD for any of the following: Severe pain not relieved by medication Fever of 101 or higher Excessive bleeding or drainage on dressing Inability to urinate Referrals: Michelet Lucio MD [Staff Physician] - 1 Month Disposition: HOME - Home Medications Comprehensive Discharge Medication List: Ambulatory Orders RX: Vitamins (Sjr) - 1 tab PO DAILY 01/30/18 Prescription Drug Monitoring Program (I-STOP) results: I-STOP not reviewed
== END 2019-11-03 15:15 | disposition home or self-care (01) | DRG 560 ==
LOC: JLDR 09:23 → J3N 20:06
PROVIDERS: ADMIT Obstetrics & Gynecology; ATTEND Obstetrics & Gynecology
PROC: 10E0XZZ Delivery of Products of Conception, External Approach (ICD-10-PCS; principal; 2019-11-01)
DX: O99.214 Obesity complicating childbirth (principal); Z3A.39 39 weeks gestation of pregnancy; Z37.0 Single live birth
CPT/HCPCS: 36415; 36600; 59409; 80048; 82803; 85025; 85461; 85610; 85730; 86780; 86850; 86900; 86901; 86999; 87389; U0003

== ENCOUNTER 2021-08-02 20:14 | Emergency (ER) | payer OTHER ==
[2021-08-02 20:29] VITALS: BP 107/69; PULSE 96; TEMP 97.9; BMI 35.5
[2021-08-02 21:23] LABS: BASO % 0.7 % (0-2.0); HEMATOCRIT 37.9 % (32.4-45.2); HEMOGLOBIN 12.7 GM/dL (10.7-15.3); LYMPH % 31.5 % (8-40); MCH 27.7 pg (25.7-33.7); MCHC 33.5 g/dl (32.0-36.0); MEAN CELL VOLUME 82.8 fl (80-96); MEAN PLT VOLUME 8.1 fl (7.5-11.1); MONO % 8.9 % (3.8-10.2); NEUT % 57.9 % (42.8-82.8); PLATELET COUNT 230 10^3/uL (134-434); RBC 4.58 M/mm3 (3.60-5.2); RDW 14.8 % (11.6-15.6); WHITE BLOOD COUNT 9.8 K/mm3 (4.0-10.0)
[2021-08-02 21:41] LABS: CALCIUM 8.2 mg/dL (8.5-10.1)
[2021-08-02 21:42] LABS: ALBUMIN 3.5 g/dl (3.4-5.0); BLOOD UREA NITROGEN 14.7 mg/dL (7-18)
[2021-08-02 21:45] LABS: CREATININE 0.7 mg/dL (0.55-1.3)
[2021-08-02 21:46] LABS: BILIRUBIN,TOTAL 0.2 mg/dL (0.2-1)
[2021-08-02 21:47] LABS: TOT PROT 6.8 g/dl (6.4-8.2)
[2021-08-02 22:52] LABS: EPI CELLS 9 /uL (0-25.1); HYALINE CASTS 0 /uL (0-3.1); URINE APPEARANCE CLEAR; URINE BACTERIA 18 /uL (0-1359); URINE BILIRUBIN NEGATIVE (NEGATIVE); URINE COLOR YELLOW; URINE GLUCOSE (UA) NEGATIVE (NEGATIVE); URINE KETONE NEGATIVE (NEGATIVE); URINE LEUK ESTERASE TRACE (NEGATIVE); URINE NITRITE NEGATIVE (NEGATIVE); URINE PROTEIN TRACE (NEGATIVE); URINE RBC 1563 /uL (0-23.9); URINE WBC 17 /uL (0-25.8)
[2021-08-02] MEDS ORDERED: RHO(D) IMMUNE GLOBULIN 1,500 UNIT DISP.SYRIN IM ONE (23:01)
== END 2021-08-03 00:09 | disposition home or self-care (01) ==
LOC: JER 20:14
PROC: 3E023GC Introduction of Other Therapeutic Substance into Muscle, Percutaneous Approach (ICD-10-PCS; principal; 2021-08-02)
DX: O03.9 Complete or unspecified spontaneous abortion without complication (principal); Z3A.00 Weeks of gestation of pregnancy not specified
CPT/HCPCS: 36415; 76817-TC; 80053; 81003; 84702; 85025; 86850; 86900; 86901; 86999; 87086; 99284-25; J1561

== ENCOUNTER 2023-11-28 20:27 | Emergency (ER) | payer OTHER ==
[2023-11-28 20:39] VITALS: BP 114/67; PULSE 71; RESP 20; TEMP 97.9; BMI 38.4
[2023-11-28] MEDS ORDERED: ACETAMINOPHEN 325 MG TABLET (FP) ONE (22:14)
[2023-11-28] MEDS: ACETAMINOPHEN 500 MG TABLET (FP) PO ONE (22:19)
[2023-11-28 22:31] LABS: URINE APPEARANCE CLEAR; URINE BILIRUBIN NEGATIVE (NEGATIVE); URINE COLOR YELLOW; URINE GLUCOSE (UA) NEGATIVE (NEGATIVE); URINE KETONE NEGATIVE (NEGATIVE); URINE LEUK ESTERASE NEGATIVE (NEGATIVE); URINE NITRITE NEGATIVE (NEGATIVE); URINE PROTEIN NEGATIVE (NEGATIVE)
[2023-11-28 22:50] LABS: BASO % 0.4 % (0-2.0); EOS % 1.9 % (0-4.5); HEMATOCRIT 36.7 % (32.4-45.2); LYMPH % 34.7 % (8-40); MCH 26.7 pg (25.7-33.7); MCHC 32.6 g/dl (32.0-36.0); MEAN PLT VOLUME 8.7 fl (7.5-11.1); MONO % 7.5 % (3.8-10.2); NEUT % 55.5 % (42.8-82.8); PLATELET COUNT 241 10^3/uL (134-434); RBC 4.48 M/mm3 (3.60-5.2); RDW 15.1 % (11.6-15.6)
[2023-11-28 22:52] LABS: HCG,QUALITATIVE URINE Negative
[2023-11-28 23:07] LABS: POTASSIUM 4.4 mmol/L (3.5-5.1)
[2023-11-28 23:09] LABS: ALBUMIN 3.4 g/dl (3.4-5.0); BLOOD UREA NITROGEN 16.8 mg/dL (7-18); CALCIUM 8.3 mg/dL (8.5-10.1)
[2023-11-28 23:13] LABS: CREATININE 0.7 mg/dL (0.55-1.3)
[2023-11-28 23:14] LABS: BILIRUBIN,TOTAL 0.2 mg/dL (0.2-1); TOT PROT 6.6 g/dl (6.4-8.2)
== END 2023-11-28 23:37 | disposition home or self-care (01) ==
LOC: JER 20:27
DX: K64.9 Unspecified hemorrhoids (principal)
CPT/HCPCS: 36415; 80053; 81003; 82272; 84703; 85025; 87086; 99283-25